=== PATIENT | male | born 1950 | race Caucasian/White ===

== ENCOUNTER 2022-11-18 06:04 | Day surgery (SDC) | payer MEDICARE, BC, SELFPAY ==
[2022-11-18] VITALS (15 sets, daily range): BP systolic 97–149; BP diastolic 48–69; PULSE 42–51; RESP 14–20; TEMP 36.1–36.5; O2SAT 90–100; BMI 33.7
[2022-11-18] MEDS: OXYCODONE (CR) 10 MG TAB.ER.12H PO (06:54)
[2022-11-18] MEDS: ACETAMINOPHEN 500 MG TABLET 1000 MG PO (06:54)
[2022-11-18] MEDS: SODIUM CHLORIDE 0.9 % (FLUSH) 10 ML SYRINGE IVF (07:18)
[2022-11-18] MEDS: LACTATED RINGERS 1000 ML 1,000 ML 100 ML IV (07:18)
[2022-11-18] MEDS: fentaNYL 100 MCG/2 ML inj IVP (07:27)
[2022-11-18] MEDS: MIDAZOLAM HCL 1 MG/ML inj IVP (07:27)
--- NOTE | 2022-11-18 07:38 | SUR.PREOP ---
TIME?OUT:?0725 PT/RN/MDA?VERIFICATION?OF?SURGICAL?SITE,?PROCEDURE,?AND?CONSENT OBTAINED?PRIOR?TO?INVASIVE?PROCEDURE.
[2022-11-18] MEDS: CEFAZOLIN 2 GM INJ IVP (07:49)
--- NOTE | 2022-11-18 08:36 | W.PM.NB ---
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 Images saved: Yes Medications given in 5ml increments after negative aspiration: Ropivicaine %: 0.5 mL: 20 Needle gauge: 22 Decadron (mg): 10 Precedex (mcg): 25 Patient tolerated procedure well: Yes Block Charges Block Charge (with Pro Fee): Brachial Plexus Use of Ultrasound Machine for Block: Yes- US Guidance/pain block
--- NOTE | 2022-11-18 08:37 | W.ANESCHARGE ---
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
--- NOTE | 2022-11-18 09:22 | P.ORPRC_ITS ---
Procedure Note Date of procedure: 11/18/22 Procedure: PREOPERATIVE DIAGNOSIS: Right shoulder rotator cuff tear, AC joint arthrosis, biceps tendinopathy POSTOPERATIVE DIAGNOSIS: Right shoulder rotator cuff tear, AC joint arthrosis, biceps tendinopathy NAME OF OPERATION: Right shoulder arthroscopic subacromial decompression, distal clavicle excision, mini open rotator cuff repair, biceps tenodesis SURGEON: Srinivas Titus MD MACHINIST INSTRUCTOR: Sandra Lemons PA-C ANESTHESIA: Supraclavicular block plus general endotracheal ESTIMATED BLOOD LOSS: 5 mL COMPLICATIONS: None SPECIMENS: None DRAINS: None PREOPERATIVE ANTIBIOTICS: Ancef 2 grams INDICATIONS: The patient is a 72-year-old with a history of right shoulder pain secondary to the above diagnoses. Despite appropriate non operative management, they continue to have symptoms. Operative intervention was recommended. The risks, benefits and expected outcomes were discussed in detail. These included but were not limited to: Infection, bleeding, injury to blood vessel or nerve, venous thromboembolism. All questions were answered to their satisfaction. PROCEDURE: A supraclavicular block was placed by Anesthesia. General anesthesia was administered. The patient was placed in the high beach chair position. The right shoulder was prepped and draped in the usual sterile fashion. The glenohumeral joint was infiltrated with 20 mL of normal saline with epinephrine. The posterior portal was established, the arthroscope was introd uced. The anterior portal was established, Diagnostic arthroscopy was performed with findings as follows: The biceps has a marked amount of intra- articular tendinopathy. The anterior, posterior and superior labrum shows age- appropriate degenerative fraying. Articular surfaces on the humeral head and glenoid are normal. There are no loose bodies. There is a high-grade partial- thickness tear of the supraspinatus and longitudinal splitting of the subscap. The biceps was tenotomized with arthroscopic scissors. The stump was debrided with the shaver. Likewise, the labrum was debrided with the shaver. The arthroscope was placed in the subacromial space, the lateral portal was established. The Arthrex [place] was used to dissect the acromion free. The CA ligament was recessed off the anterior acromion, the AC joint was exposed. The acromioplasty was performed with the bur in the posterior portal. The bur was then placed in the lateral portal and the lateral and anterior aspect of the acromion were resected. The undersurface of the distal clavicle was resected through the lateral portal. Finally, the bur was placed in the anterior portal and the remainder of the distal clavicle was resected for a total of 10 mm. An accessory anterolateral portal was placed. The subacromial/subdeltoid bursa was aggressively debrided. The bursal surface of the rotator cuff appears intact. Arthroscopic instruments were removed. The accessory anterolateral portal was extended proximally and distally, subcutaneous dissection was taken with electrocautery to the deltoid. The deltoid was divided in line with its fibers. The static retractor was placed. The subacromial/subdeltoid bursa was debrided with the Can scissors. The bicipital groove was opened with the scalpel, delivering the biceps into the wound. We release the remaining few fibers of the supraspinatus and subscap insertion, resulting in a full-thickness tear of each. The greater and lesser tuberosities were debrided to punctate bleeding bone using the arthroscopic bur. A suture tape was placed in the subscap in an inverted mattress fashion. A fiber link was placed in the biceps. Two Arthrex [employer] SwiveLock anchors were placed just off the articular surface. Both limbs of the FiberWire and fiber tape were passed using the scorpion. A fiber link was placed in the leading edge of the rotator cuff x2. We tied the 2 central FiberWire sutures over the rotator cuff. A SwiveLock anchor was placed high in the groove, securing the biceps and subscap. We then proceeded with a lateral row of SwiveLock anchors x 2 crossing the FiberTape and incorporating the FiberWire and fiber link into each lateral row anchor. Sutures in the eyelet in each anchor were passed through the leading edge of the rotator cuff x3. This provides an anatomic, watertight repair of the rotator cuff. There is no tension on the repair with the shoulder at 0? abduction. The wound was irrigated with normal saline off the pump. The deltoid was repaired with an 0 Vicryl in an interrupted [id number] fashion. Subcutaneous tissues were closed with a 3-0 Vicryl. Skin was closed with a 3-0 Monocryl in a subcuticular fashion. A dry dressing, polar care and sling were applied. Sponge and needle counts were correct x2. The patient tolerated the procedure well. There were no apparent complications. They were carefully transferred to the hospital bed and taken to the postanesthesia care unit in satisfactory condition. PLAN: The patient will be discharged to home. No active range of motion of the shoulder will be allowed for 6 weeks postoperatively. They can work on active range of motion of the elbow, wrist and fingers. They will follow up in the office next week for a wound check and an AP and transscapular Y-view of the shoulder prior to being seen.
--- NOTE | 2022-11-18 09:43 | W.ANESCHARGE ---
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
[2022-11-18] MEDS: LACTATED RINGERS 1000 ML 1,000 ML 35 ML IV (10:05)
--- NOTE | 2022-11-18 10:25 | SUR.PHASEI ---
patient met dicharge criteria per anesthesia
== END 2022-11-18 12:24 | disposition home or self-care (01) ==
PROVIDERS: PCP Internal Medicine; Visit Provider Orthopaedic Surgery
PROC: (CPT 23412; principal; 2022-11-18 07:30)
DX: M75.101 Unspecified rotator cuff tear or rupture of right shoulder, not specified as traumatic (principal); M19.011 Primary osteoarthritis, right shoulder; M75.21 Bicipital tendinitis, right shoulder; G89.18 Other acute postprocedural pain
CPT/HCPCS: 29826; 29828; 29824; 23412; 01630; 64415; 76942; 99100; A9270; C1713; J0330; J0690; J1100; J2250; J2370; J2405; J2704; J2795; J3010; J7120; L3670

== ENCOUNTER 2023-12-20 13:25 | Outpatient (CLI) | payer MEDICARE, BC, SELFPAY ==
--- OUTSIDE RECORDS SUMMARY | 2023-12-20 13:27 | XMS_ITS | Clinical Summary ---
Author Organization [employer] [facility] Address [place], [place] [address] Care Team Providers [facility] Name Role Phone Latrice Velasquez MD Primary Care Provider [phone] Kati Inman MD Unavailable [phone] Skip Terrell MD Unavailable Allergies No known active allergies Medications Medication Sig Dispensed Refills Start Date End Date Status ketoconazole 2% topical (NIZORAL) cream Apply topically to affected area(s) once daily. To feet Active ketoconazole 2% shampoo (NIZORAL) 2 % shampoo ADD 1 CAP OF SHAMPOO TO WARM WATER AND SOAK FOR 10 MINUTES 1-3 TIMES A WEEK 10/26/2022 Active metoprolol succinate (TOPROL XL) 25 mg Sustained-Release tabletIndications:Aty pical atrial flutter (HC) Take 0.5 Tablets (12.5 mg) by mouth two times daily. 45 Tablet 2 12/22/2022 Active CPAPIndications:JAYRO (obstructive sleep apnea) CPAP machine for home use at pressure 10cmw, nasal mask x1/3month with nasal cushion x2/mo 1 Each 11 01/05/2023 Active propafenone (RYTHMOL) 300 mg tabletIndications:Aty pical atrial flutter (HC) TAKE ONE TABLET BY MOUTH EVERY 8 HOURS. 270 Tablet 3 05/09/2023 Active apixaban (ELIQUIS) 5 mg tabletIndications:Par oxysmal atrial fibrillation (HC),Atypical atrial flutter (HC) Take 1 Tablet (5 mg) by mouth two times daily. 180 Tablet 2 08/10/2023 Active torsemide (DEMADEX) 20 mg tabletIndications:Zeus ous insufficiency Take 1 Tablet (20 mg) by mouth once daily. until leg swelling improves and then as needed for swelling/weight gain. 30 Tablet 1 08/22/2023 Active amLODIPine (NORVASC) 5 mg tabletIndications:Hyp ertension Take 1 Tablet (5 mg) by mouth once daily. 90 Tablet 3 09/27/2023 Active atorvastatin (LIPITOR) 20 mg tabletIndications:Mix ed hyperlipidemia Take 1 Tablet (20 mg) by mouth at bedtime. 90 Tablet 3 09/27/2023 Active tamsulosin (FLOMAX) 0.4 mg capsuleIndications:Ne phrolithiasis Take 1 Capsule (0.4 mg) by mouth once daily after a meal. 14 Capsule 10/23/2023 Active Active Problems Problem Noted Date Diagnosed Date Urge incontinence of urine 10/31/2023 Erectile dysfunction 10/31/2023 Ureteral stone with hydronephrosis 10/30/2023 JAYRO 09/04/2018 AHI-28 09/12/2018 Overview: Using CPAP Atrial flutter 07/03/2018 Tubular adenoma 02/28/2018 Mixed hyperlipidemia 04/27/2017 Tinea pedis of both feet 03/28/2017 S/P ablation of atrial fibrillation 05/04/2012 Overview: 2011 1st ablation Hypertension 06/27/2006 Atrial fibrillation, paroxysmal 09/26/2000 Overview: - First episode in 2000 - S/P cardioversions 3X in 2004 -Treated with Propafenone briefly -11/2011 S/P complex radiofrequency ablation with Dr. Victor -February 2013 atrial fibrillation found during preoperative exam, good rate control on Toprol -05/07/2013 DCCV - restarted rhythmol 225 three times daily - 07/03/2018 DCCV after a cruise -05/10/2020 DCCV at [facility] - 07/2022 ablation procedure Hyperlipidemia Umbilical hernia Resolved Problems Problem Noted Date Diagnosed Date Resolved Date Anticoagulation monitoring, INR range 2-3 07/05/2018 06/05/2019 Abscess of left thigh 04/29/20172017 Edema of left lower leg due to peripheral venous insufficiency 04/27/2017 12/05/2017 Sepsis due to undetermined organism 03/28/2017 04/05/2017 Cellulitis of left leg/thigh 03/28/2017 12/05/2017 Encounter for long-term (cur rent) use of other medications 09/10/2006 05/09/2012 Encounters Date Type Department Care Team Description 12/19/2023 2:00 PM CDT Orders Only [facility] [address] [facility] [place] [address] 1 scan: (1-Ord) ECHO TTE COMPLETE WO CONTRAST ([id number]) 12/19/2023 Travel 12/14/2023 3:30 PM CDT Office Visit [facility] [address] [place] [address] Alexandra Peterson MD Consult (consult) 12/14/2023 Travel 11/04/2023 1:05 PM CDT - 11/04/2023 11:59 PM CDT Hospital Encounter [facility] [address] [place] [address] Aldo Bermudez MD Ureteral stone with hydronephrosis 11/04/2023 Travel 11/02/2023 Telephone [facility] [address] [place] [address] Mason Elizabeth MD Medication Management 11/01/2023 Travel 10/31/2023 12:00 PM CDT Office Visit [facility] [address] [place] [address] Aldo Bermudez MD Consult (Nephrolithiasis ) 10/31/2023 Telephone [facility] [address] [place] [address] Mason Elizabeth MD Appointment Request 10/31/2023 Travel 10/24/2023 Telephone [facility] [address] [place] [address] Ramila Inman MD Appointment Request 10/23/2023 10:50 AM CDT - 10/23/2023 11:59 PM CDT Hospital Encounter [facility] [address] [place] [address] Tsering Walker, ARMIDA Gross hematuria 10/23/2023 9:20 AM CDT Office Visit [facility] [address] [place] [address] Tsering Walker, PRINTER FLOOR COVERING ASSISTANT Cystitis (Possible UTI; frequent urination emptying full bladder q 10-15 minutes, dark brown urine since yesterday morning. ) 10/23/2023 Travel 10/18/[address] [address] Alice Jacobson NP Follow Up (vein study) 10/11/2023 8:00 AM CDT Orders Only [facility] [address] [place] [address] 2 scans: (2-Ord) US VENOUS INSUFFICIENCY LOWER EXTREMITY BILATERAL ([id number]) 10/11/2023 Travel 09/29/[address] [address] Alice Jacobson NP Follow Up 09/27/2023 11:35 AM CDT Ancillary Procedure [address] [address] 09/27/2023 10:30 AM CDT Office Visit [address] [address] Alice Jacobson NP Medicare ANNUAL (subsequent) Visit 09/27/2023 Travel from Last 3 Months Immunizations Name Administration Dates Next Due AMB Influenza, IIV3 (Age >=3 years)(Flu Clinic Only) 03/10/2013 Amb Influenza, Inact (High-d ose) (Flu Clinic Only) 02/14/2014 COVID-19 vaccine (Pfizer-Bio NTech 30mcg/0.3mL) 12YO+ BIVALENT PF, MDV 04/14/2022 COVID-19 vaccine (Pfizer-Bio NTech 30mcg/0.3mL) 12YO+ JILLIAN-SUCROSE PF, MDV 11/02/2021 COVID-19 vaccine (Pfizer-Bio NTech 30mcg/0.3mL) PF, MDV 02/25/2021,08/17/2020,07/26/2020 HepA-HepB (Twinrix) 08/17/2006 Hepatitis A (Adult) 08/17/2006,02/10/2006 Hepatitis B (Adult) 08/17/2006,04/21/2006,2005 Influenza A (H1N1), Inactivated 06/02/2009 Influenza A (H1N1), Inactiva toni (Age >=3 Years) 06/02/2009 Influenza RIV4 (Age 18+ Year s) PRESERV FREE 03/03/2019 Influenza Virus, Unspecified 02/18/2020, 03/30/2017,03/10/2013,2011,02/19/2011,03/09/2010,04/09/2009,1 ,03/24/2006,04/14/2005 Influenza, High-dose Inactivated 018,03/23/2016,03/18/2015,2013 Influenza, High-dose Quadriv alent Inactivated 02/24/2023,02/25/2021 Influenza, IIV3 (Age 6-35 mos) 02/19/2011 Influenza, IIV3 (Age >=3 years) 03/10/20 13,03/07/2012,02/19/2011,2009,04/09/2009,03/08/2008,03/24/2006,1 06/14/2004 Influenza, Inactivated AIIV4 (Age 65+ Years) Preserv Free 02/27/2022 Influenza, Inactivated IIV3 (Age 65+ Years) Preserv Free 03/03/2019,03/30/2017 Pneumococcal Poly,23-Valent (Pneumovax) 05/31/2017,05/12/2012,02/20/2006 Pneumococcal conj 13-Valent (Prevnar 13) 11/14/2014 Td, Preservative Free (age > = 7 Years) 06/10/2005 Tdap 11/14/2014 Typhoid (injectable) 07/07/2017,11/14/2014 Zoster (Shingrix-RZV, recombinant) 05/03/2019, Zoster (Zostavax-ZVL, live) 01/01/2010 Family History Medical History Relation Name Comments Other Brother 2 throat cancer Cancer Father brain Cancer Mother lung Other Mother postop complica tions after spinal fusion Relation Name Status Comments Brother 1 Brother 2 Daughter Alive Father (Age 66) Mother Son Alive Social History Tobacco Use Types Packs/Day Years Used Date Smoking Tobacco: Never Smokeless Tobacco: Never Tobacco Cessation:Counseling Given: Yes Comments:never Alcohol Use Standard Drinks/Week Comments No 0 (1 standard drink = 0.6 oz pur e alcohol) PHQ-2 Answer Date Recorded PHQ-2 TOTAL SCORE 0 09/27/2023 Social Connections Answer Date Recorded Frequency of Communication with Friends and Fami ly Not on file 11/04/2022 Financial Resource Strain Answer Date R ecorded Difficulty of Paying Living Expenses 3 11/02/2021 Difficulty of Paying Living Expenses Not on file 11/02/2021 Food Insecurity Answer Date Recorded Worried About Running Out of Food in the Last Ye ar 1 11/02/2021 Transportation Needs Answer Date Record ed Lack of Transportation (Medical) 1 11/02/2021 Housing Stability Answer Date Recorded Unable to Pay for Housing in the Last Year 1 11/02/2021 Sex and Gender Information Value Date Recorded Sex Assigned at Male 01/12/2020 4:47 PM CDT Gender Identity Male 01/12/2020 4:47 PM CDT Sexual Orientation Straight 01/12/2020 4: 47 PM CDT Obstetrics History Last Filed Vital Signs Vital Sign Reading Time Taken Comments Blood Pressure 138/78 12/14/2023 11:05 AM CDT Pulse 55 12/14/2023 11:05 AM CDT Temperature 36.4 ??C (97.6 ??F) 10/23/2023 10:26 AM C DT Respiratory Rate 18 10/23/2023 11:31 AM CDT Oxygen Saturation 96% 12/14/2023 11:05 AM CDT Inhaled Oxygen Concentration - - Weight 98.7 kg (217 lb 8 oz) 12/14/2023 11:05 AM CDT Height 168 cm (5' 6.14) 09/27/2023 10:34 AM CDT Body Mass Index 34.95 09/27/2023 10:34 AM CDT Plan of Treatment Upcoming Encounters Date Type Department Care Team (Late st Contact Info) Description 01/17/2024 2:30 PM CDT Office Visit [facility] [address] [place] [address] Skip Terrell MD [address] [place] [address] 03/06/2024 10:30 AM CDT Office Visit [facility] [address] [place] [address] Jerel Plascencia MD [address] [place] [address] Health Maintenance Due Date Last Done Comments COVID-19 vaccine series ( season) 2023 04/14/2022, 11/02/2021, 02/25/2021, Additional history exists Influenza for age 65+ 01/22/2024 02/24/2023 , 02/27/2022, 02/25/2021, Additional history exists BMI (ht and wt on same day) for age 18+ 09/26/2024 09/27/2023, 01/05/2023, 12/16/2022, Additional history exists Medicare Wellness for age 65+ 09/27/2024, 08/03/2022, 07/29/2021, Additional history exists Depression screening for age 12+ 09/28/2024 09/29/2023, 09/27/2023, 08/05/2022, Additional history exists Tetanus booster 11/14/2024 11/14/2014, 06/10/2005 Colonoscopy through age 75 05/09/202805/09, 04/04/2018, 03/27/2013, Additional history exists Lipids for age 45-75 09/26/2028 09/27/2023, 08/03/2022, 07/29/2021, Additional history exists Tdap Completed 11/14/2014 Pneumococcal series for age 65+ Completed 05/31/2017, 11/14/2014, 05/12/2012, Additional history exists Hepatitis C screening for ag e 18-79 Completed 06/03/2017 Zoster (shingles) series for age 50+ Completed 05/03/2019, 03/03/2019, 01/01/2010 Procedures Procedure Name Priority Date/Time Associated Diagnosis Comments ECHO TTE COMPLETE WO CONTRAST Routine 12/19/2023 2:50 PM CDT Atrial fibrillation, unspecified type (HC) Paroxysmal atrial fibrillation (HC) Mitral valve insufficiency, unspecified etiology CT PELVIS WO STAT 11/04/2023 1:28 PM CDT Ureteral stone with hydronephrosis RED CELL MORPHOLOGY STAT 10/23/2023 11:13 AM CDT Gross hematuria PLATELET ESTIMATE STAT 10/23/2023 11:13 AM CDT Gross hematuria MANUAL DIFFERENTIAL STAT 10/23/2023 11:13 AM CDT Gross hematuria CBC WITH AUTO DIFFERENTIAL STAT 10/23/2023 11:13 AM CDT Gross hematuria BASIC METABOLIC PANEL STAT 10/23/2023 11:13 AM CDT Gross hematuria CBC WITH AUTO DIFFERENTIAL STAT 10/23/2023 11:13 AM CDT Gross hematuria CT ABDOMEN PELVIS WO STAT 10/23/2023 11:09 AM CDT Gross hematuria URINE CULTURE Add On 10/23/2023 9:43 AM CDT Gross hematuria URINALYSIS MICROSCOPIC STAT 10/23/2023 9:43 AM CDT Gross hematuria UA W/ SEDIMENT EXAM REFLEXED PER CRITERIA STAT 10/23/2023 9:43 AM CDT Gross hematuria US VENOUS INSUFFICIENCY LOWER EXTREMITY BILATERAL Routine 10/11/2023 8:31 AM CDT Pedal edema Paroxysmal atrial fibrillation (HC) SOB (shortness of breath) XR CHEST 2 VIEWS PA AND LATERAL Routine 09/27/2023 11:48 AM CDT Shortness of breath CBC WITH AUTO DIFFERENTIAL Routine 09/27/2023 11:35 AM CDT SOB (shortness of breath) PSA TOTAL SCREEN Routine 09/27/2023 11:35 AM CDT Prostate cancer screening ALT (SGPT) Routine 09/27/2023 11:35 AM CDT Pure hypercholesterolemia LIPID PANEL W REFLEX MEASURED LDL Routine 09/27/2023 11:35 AM CDT Pure hypercholesterolemia PRO-BNP Routine 09/27/2023 11:35 AM CDT Shortness of breath BASIC METABOLIC PANEL Routine 09/27/2023 11:35 AM CDT Pedal edema CBC WITH AUTO DIFFERENTIAL Routine 09/27/2023 11:35 AM CDT SOB (shortness of breath) COLONOSCOPY 05/09/2023 1:56 PM MANAGER DIVERSITY ANTI HCV Routine 06/03/2017 4:30 PM MANAGER DIVERSITY Need for hepatitis C screening test from Last 3 Months or Most Recently Relevant to Health Maintenance Results * ECHO TTE COMPLETE WO CONTRAST (12/19/2023 2:50 PM CDT) AORTIC VALVE MEAN PG 5 mmHg EJECTION FRACTION 71 % PEAK TR VELOCITY 2.8 m/s LVEDD 5.4 cm Anatomical Region Laterality Modality Ultrasound 12/19/2023 2:10 PM CDT Narrative 12/19/2023 4:15 PM CDT ECHOCARDIOGRAM BABAK COTTRELL ? Accession#: ?? [id number] : ?1950 73 years Study Date: ?? 12/19/2023 2:10:16 PM Gender: M ?BP: ? 142/70 mmHg Height: 168.00 cm ?BSA: ?2.08 m? ? ? Weight: 99.00 kg ? Tech: ? MBW ? Referring MD: DANITA BOB Site: ? [facility] Reading Location: [place] Patient Location: Outpatient. Procedure: 2D, Color Doppler and Spectral Doppler. Indication for study: Paroxysmal A fib/ Mitral Valve Insufficiency Cardiac Rhythm: Sinus bradycardia and with premature atrial contractions.Study quality: Fair. Final Impressions: 1. Normal left ventricular size, moderately increased wall thickness, normal global systolic function, calculated EF of 71 %. 2. Right ventricular cavity size is normal, global systolic RV function is normal. 3. Severely enlarged left atrium. 4. The ascending aorta is dilated with a maximal diameter of 4.0 cm. 5. The aortic sinus is dilated with a maximal diameter of 4.2 cm. 6. The aortic valve is trileaflet and sclerotic, no stenosis and mild regurgitation. 7. The mitral valve is sclerotic, trace mitral regurgitation. 8. Unable to assess RA pressure. At least mildly elevated RV systolic pressure (32 mmHg + the RA pressure). 9. No pericardial effusion. Comparison Compared to prior exam of 08/27/2021, there has been no significant change. Chamber Sizes and Function Normal left ventricular size, moderately increased wall thickness, normal global systolic function, calculated EF of 71 %. Left atrial size is severely enlarged. Right ventricular cavity size is normal, global systolic RV function is normal. The right atrium is mildly enlarged. Right atrial area is 17 cm? ? ?. The pulmonary artery is not well visualized. The sinus of Valsalva is dilated. The ascending aorta is dilated. Valves, RV Pressures and Diastolic Function The aortic valve is trileaflet and sclerotic, no stenosis and mild regurgitation. The mitral valve is sclerotic, trace mitral regurgitation. Indeterminate pattern of LV diastolic filling. The tricuspid valve is normal in structure. Tricuspid regurgitation is mild regurgitation. The tricuspid regurgitant velocity is 2.8 m/s, the estimated right ventricular systolic pressure is 32 mmHg plus right atrial pressure. The pulmonic valve is normal. No pulmonary regurgitation. Masses, Effusion, Shunts There is no pericardial effusion. The inferior vena cava is not well visualized, respiratory size variation not well visualized. No left to right shunting was detected by limited color flow Doppler interrogation of the interatrial septum. MEASUREMENTS AND CALCULATIONS 2-D Measurements and LV Function: LVID (d) 5.4 cm Planimetered EF 71 % LVID (s) 3.4 cm LV FS% (2D) ? 38 % IVS (d) ??1.4 cm LVOT diameter ?? 2.3 cm LVPW (d) 1.2 cm HR ?55 bpm Ao Sinus 4.2 cm LA Vol index ?47 ml/m2 Asc Ao ?? 4.0 cm RA area ? 17 cm? ? ? LA ? 5.5 cm RV Max 4C (d) ?? 4.0 cm Diastology: Mitral ?Tissue Doppler E Peak 0.9 m/s ??e', Septum ? 0.07 m/s A Peak 0.6 m/s ??e', Lateral ?0.09 m/s E/A ?1.6 ?E/e' Average ?? 11.44 DT ? 189 msec Aortic Valve: Vmax ? 1.5 m/s ??HA (V) ?? 3.21 cm? ? ? VTI ?0.35 m ?? HA (I) ?? 2.78 cm? ? ? LVOT V max ? 1.2 m/s ??Max PG ?9 mmHg LVOT VTI ? 0.24 m ?? Mean PG ?? 5 mmHg SV ? 96 ml ?Dim Index 0.68 SV index ? 46 ml/m? ? ? CO ?5.3 l/min AV Ejection Time 0.34 sec CI ?2.5 l/min/m? ? ? AV Flow Rate ? 283 ml/s Mitral Valve: MVA ? 4.0 cm? ? ? MV P 1/2 ??55 msec MV Mean G 1 mmHg MV VTI ?0.36 m Tricuspid Valve and estimated PA pressures: TR Vmax 2.8 m/s TAPSE 2.2 cm TR maxG 32 mmHg . This study was interpreted by an [facility] accredited facility. CC: Latrice Velasquez. ??Final ?? Procedure Note Blas Bello MD - 12/19/2023 ECHOCARDIOGRAM BABAK COTTRELL : 1950 73 years Study Date: 12/19/2023 2:10:16 PM Gender: M BP: 142/70 mmHg Height: 168.00 cm BSA: 2.08 m? ? ? Weight: 99.00 kg Tech: MAKENNA Referring MD: DANITA BOB Site: [facility] Reading Location: [place] Patient Location: Outpatient. Procedure: 2D, Color Doppler and Spectral Doppler. Indication for study: Paroxysmal A fib/ Mitral Valve Insufficiency Cardiac Rhythm: Sinus bradycardia and with premature atrialcontractions.Study quality: Fair. Final Impressions: 1. Normal left ventricular size, moderately increased wall thickness,normal global systolic function, calculated EF of 71 %. 2. Right ventricular cavity size is normal, global systolic RV functionis normal. 3. Severely enlarged left atrium. 4. The ascending aorta is dilated with a maximal diameter of 4.0 cm. 5. The aortic sinus is dilated with a maximal diameter of 4.2 cm. 6. The aortic valve is trileaflet and sclerotic, no stenosis and mildregurgitation. 7. The mitral valve is sclerotic, trace mitral regurgitation. 8. Unable to assess RA pressure. At least mildly elevated RV systolicpressure (32 mmHg + the RA pressure). 9. No pericardial effusion. Comparison Compared to prior exam of 08/27/2021, there has been no significantchange. Chamber Sizes and Function Normal left ventricular size, moderately increased wall thickness, normalglobal systolic function, calculated EF of 71 %. Left atrial size isseverely enlarged. Right ventricular cavity size is normal, globalsystolic RV function is normal. The right atrium is mildly enlarged. Rightatrial area is 17 cm? ? ?. The pulmonary artery is not well visualized. Thesinus of Valsalva is dilated. The ascending aorta is dilated. Valves, RV Pressures and Diastolic Function The aortic valve is trileaflet and sclerotic, no stenosis and mildregurgitation. The mitral valve is sclerotic, trace mitral regurgitation.Indeterminate pattern of LV diastolic filling. The tricuspid valve isnormal in structure. Tricuspid regurgitation is mild regurgitation. Thetricuspid regurgitant velocity is 2.8 m/s, the estimated right ventricularsystolic pressure is 32 mmHg plus right atrial pressure. The pulmonicvalve is normal. No pulmonary regurgitation. Masses, Effusion, Shunts There is no pericardial effusion. The inferior vena cava is not wellvisualized, respiratory size variation not well visualized. No left toright shunting was detected by limited color flow Doppler interrogation ofthe interatrial septum. MEASUREMENTS AND CALCULATIONS 2-D Measurements and LV Function: LVID (d) 5.4 cm Planimetered EF 71 % LVID (s) 3.4 cm LV FS% (2D) 38 % IVS (d) 1.4 cm LVOT diameter 2.3 cm LVPW (d) 1.2 cm HR 55 bpm Ao Sinus 4.2 cm LA Vol index 47 ml/m2 Asc Ao 4.0 cm RA area 17 cm? ? ? LA 5.5 cm RV Max 4C (d) 4.0 cm Diastology: Mitral Tissue Doppler E Peak 0.9 m/s e', Septum 0.07 m/s A Peak 0.6 m/s e', Lateral 0.09 m/s E/A 1.6 E/e' Average 11.44 DT 189 msec Aortic Valve: Vmax 1.5 m/s HA (V) 3.21 cm? ? ? VTI 0.35 m HA (I) 2.78 cm? ? ? LVOT V max 1.2 m/s Max PG 9 mmHg LVOT VTI 0.24 m Mean PG 5 mmHg SV 96 ml Dim Index 0.68 SV index 46 ml/m? ? ? CO 5.3 l/min AV Ejection Time 0.34 sec CI 2.5 l/min/m? ? ? AV Flow Rate 283 ml/s Mitral Valve: MVA 4.0 cm? ? ? MV P 1/2 55 msec MV Mean G 1 mmHg MV VTI 0.36 m Tricuspid Valve and estimated PA pressures: TR Vmax 2.8 m/s TAPSE 2.2 cm TR maxG 32 mmHg . This study was interpreted by an [facility] accredited facility. CC: Latriec Velasquez. Final Danita Bob PRINTER FLOOR COVERING ASSISTANT ECHO ORD * CT PELVIS WO (11/04/2023 1:28 PM CDT) Anatomical Region Laterality Modality Pelvis, Abdomen, PROSTATE, BLADDER Computed Tomography 11/04/2023 1:52 PM CDT Impressions 11/04/2023 1:52 PM CDT 1. Previously seen distal left ureteral calculus has passed in the interim. No ureteral calculi or hydronephrosis. 2. Stable mildly trabeculated bladder wall, with small left diverticulum. No bladder calculi identified. Small urachal remnant noted. Please note that all CT scans at this facility use dose modulation, iterative reconstruction, and/or weight-based dosing when appropriate to reduce radiation dose to as low as reasonably achievable. Dictated by Bina Bauer MD @ 11/04/2023 1:52:38 PM (Electronically Signed) Narrative 11/04/2023 1:52 PM CDT For Patients: ??As a result of the Century Cures Act, medical imaging exams and procedure reports are released immediately into your electronic medical record. ??You may view this report before your referring provider. ??If you have questions, please contact your health care provider. INDICATION: Ureteral stone. TECHNIQUE: CT pelvis acquired without contrast. COMPARISON: CT abdomen/pelvis dated 10/23/2023. FINDINGS: Bowel and mesentery: Visualized bowel is nondilated. Scattered colonic diverticulosis, without evidence of acute diverticulitis. Bladder: Stable mildly trabeculated bladder wall, with small left diverticulum. Small urachal remnant noted. Previously seen distal left ureteral calculus has passed in the interim, no ureteral calculi or hydronephrosis. Reproductive organs: No prostatomegaly. Pelvic lymph nodes: No lymphadenopathy. Vessels: Scattered atherosclerotic calcifications. Abdominal wall: No acute abdominal wall abnormality. Bones: Multilevel degenerative changes of the visualized spine. No suspicious/aggressive focal osseous lesion. Procedure Note Bina Bauer MD - 11/04/2023 For Patients: As a result of the Cures Act, medical imagingexams and procedure reports are released immediately into your electronicmedical record. You may view this report before your referring provider.If you have questions, please contact your health care provider. INDICATION: Ureteral stone. TECHNIQUE: CT pelvis acquired without contrast. COMPARISON: CT abdomen/pelvis dated 10/23/2023. FINDINGS: Bowel and mesentery: Visualized bowel is nondilated. Scattered colonicdiverticulosis, without evidence of acute diverticulitis. Bladder: Stable mildly trabeculated bladder wall, with small leftdiverticulum. Small urachal remnant noted. Previously seen distal leftureteral calculus has passed in the interim, no ureteral calculi orhydronephrosis. Reproductive organs: No prostatomegaly. Pelvic lymph nodes: No lymphadenopathy. Vessels: Scattered atherosclerotic calcifications. Abdominal wall: No acute abdominal wall abnormality. Bones: Multilevel degenerative changes of the visualized spine. Nosuspicious/aggressive focal osseous lesion. IMPRESSION: 1. Previously seen distal left ureteral calculus has passed in theinterim. No ureteral calculi or hydronephrosis. 2. Stable mildly trabeculated bladder wall, with small left diverticulum.No bladder calculi identified. Small urachal remnant noted. Please note that all CT scans at this facility use dose modulation,iterative reconstruction, and/or weight-based dosing when appropriate toreduce radiation dose to as low as reasonably achievable. Dictated by Bina Bauer MD @ 11/04/2023 1:52:38 PM (Electronically Signed) Aldo Bermudez MD CT * (ABNORMAL) CBC WITH AUTO DIFFERENTIAL (10/23/2023 11:13 AM CDT) Only the most recent of2 resultswithin the time period is included. WHITE BLOOD COUNT 11.3(H) 4.5 - 11.0 thou/cu mm 10/23/2023 11:39 AM T [facility] RED BLOOD COUNT 4.22(L) 4.30 - 5.90 mil/cu mm 10/23/2023 11:39 AM [facility] HEMOGLOBIN 13.1(L) 13.5 - 17.5 g/dL 10/23/2023 11:39 AM [facility] HEMATOCRIT 39.3 37.0 - 53.0 % 10/23/2023 11:39 AM [facility] LABORATORY MCV 93 80 - 100 fL 10/23/2023 11:39 AM [facility] MCH 31.0 26.0 - 34.0 pg 10/23/2023 11:39 AM [facility] MCHC 33.3 32.0 - 36.0 g/dL 10/23/2023 11:39 AM [facility] RDW 12.6 11.5 - 15.5 % 10/23/2023 11:39 AM [facility] PLATELET COUNT 245 140 - 440 thou/cu mm 10/23/2023 11:39 AM [facility] MPV 10.5 6.5 - 11.0 fL 10/23/2023 11:39 AM [facility] Blood BLOOD SPECIMEN / Unknown Venipuncture / Unknown 10/23/2023 11:13 AM CDT 10/23/2023 11:14 AM CDT Tsering Walker NP HEMATOLOGY [facility] [address] [place] [address] * RED CELL MORPHOLOGY (10/23/2023 11:13 AM CDT) [facility] RBC COMMENT RBC morphology appears normal RBC morphology appears normal, RBC morphology within normal limits for newborns. 10/23/2023 11:39 AM CDT [facility] Blood BLOOD SPECIMEN / Unknown Venipuncture / Unknown 10/23/2023 11:13 AM CDT 10/23/2023 11:14 AM CDT Tsering Walker NP HEMATOLOGY [facility] [address] [place] [address] * PLATELET ESTIMATE (10/23/2023 11:13 AM CDT) [facility] PLATELET ESTIMATE Adequate Adequate, No estimate 10/23/2023 11:39 AM CDT [facility] Blood BLOOD SPECIMEN / Unknown Venipuncture / Unknown 10/23/2023 11:13 AM CDT 10/23/2023 11:14 AM CDT Tsering Walker NP HEMATOLOGY [facility] [address] [place] [address] * (ABNORMAL) MANUAL DIFFERENTIAL (10/23/2023 11:13 AM CDT) [facility] % NEUTROPHILS 61.0 % 10/23/2023 11:39 AM CDT [facility] % LYMPHOCYTES 29.0 % 10/23/2023 11:39 AM CDT [facility] % MONOCYTES 8.0 % 10/23/2023 11:39 AM CDT [facility] % EOSINOPHILS 2.0 % 10/23/2023 11:39 AM CDT [facility] % BASOPHILS 0.0 % 10/23/2023 11:39 AM CDT [facility] NEUTROPHILS ABSOLUTE 6.9 1.7 - 7.0 thou/cu mm 10/23/2023 11:39 AM [facility] LYMPHOCYTES ABSOLUTE 3.3(H) 0.9 - 2.9 thou/cu mm 10/23/2023 11:39 AM [facility] MONOCYTES ABSOLUTE 0.9(H) <0.9 thou/cu mm 10/23/2023 11:39 AM [facility] EOSINOPHILS ABSOLUTE 0.2 <0.5 thou/cu mm 10/23/2023 11:39 AM [facility] BASOPHILS ABSOLUTE 0.0 <0.3 thou/cu mm 10/23/2023 11:39 AM [facility] Blood BLOOD SPECIMEN / Unknown Venipuncture / Unknown 10/23/2023 11:13 AM CDT 10/23/2023 11:14 AM CDT Tsering Walker NP HEMATOLOGY Performing Organization Address City/[facility] Co de Phone Number [facility] [address] [place] [address] * (ABNORMAL) BASIC METABOLIC PANEL (10/23/2023 11:13 AM CDT) Only the most recent of2 resultswithin the time period is included. SODIUM 145 136 - 145 mmol/L 10/23/2023 11:37 AM [facility] POTASSIUM 3.8 3.5 - 5.1 mmol/L 10/23/2023 11:37 AM [facility] CHLORIDE 104 98 - 107 mmol/L 10/23/2023 11:37 AM [facility] CO2,TOTAL 31(H) 22 - 29 mmol/L 10/23/2023 11:37 AM [facility] ANION GAP 10 5 - 18 10/23/2023 11:37 AM [facility] GLUCOSE 97 70 - 99 mg/dL 10/23/2023 11:37 AM [facility] CALCIUM 9.6 8.8 - 10.2 mg/dL 10/23/2023 11:37 AM [facility] BUN 27(H) 8 - 23 mg/dL 10/23/2023 11:37 AM CDT [facility] CREATININE 1.34(H) 0.70 - 1.20 mg/dL 10/23/2023 11:37 AM CDT [facility] BUN/CREAT RATIO 20 10 - 20 11:37 AM CDT [facility] eGFR 55(L) >90 mL/min/1.7 3m2 10/23/2023 11:37 AM CDT [facility] Comment:As of 2021, eG FR is calculated by the CKD-EPI creatinine equation without race adjustment. ??eGFR can be influenced by muscle mass, exercise, and diet. ??The reported eGFR is an estimation only and is only applicable if the renal function is stable. Blood BLOOD SPECIMEN / Unknown Venipuncture / Unknown 10/23/2023 11:13 AM CDT 10/23/2023 11:14 AM CDT Tsering Walker NP CHEMISTRY [facility] [address] [place] [address] * CT ABDOMEN PELVIS WO (10/23/2023 11:09 AM CDT) Anatomical Region Laterality Modality Abdomen, Pelvis, AORTA, LIVER, SPLEEN Computed Tomography 10/23/2023 12:1 7 PM CDT Impressions 10/23/2023 12:17 PM CDT 1. Mild left-sided hydronephrosis to the level of the distal left ureter where there is a 5 mm obstructing urinary calculus. 2. Dense coronary arterial calcifications. Advise correlation with ASCVD evaluation. Please note that all CT scans at this facility use dose modulation, iterative reconstruction, and/or weight-based dosing when appropriate to reduce radiation dose to as low as reasonably achievable. Dictated by Abelino Acosta MD @ 10/23/2023 12:17:56 PM (Electronically Signed) Narrative 10/23/2023 12:17 PM CDT For Patients: ??As a result of the 21st Century Cures Act, medical imaging exams and procedure reports are released immediately into your electronic medical record. ??You may view this report before your referring provider. ??If you have questions, please contact your health care provider. INDICATION: Flank pain. Evaluate for kidney stone. TECHNIQUE: Multiplanar CT examination of the abdomen and pelvis was performed without the use of intravenous contrast, renal stone protocol. COMPARISON: None. FINDINGS: Limited evaluation of the soft tissue organs without the use of intravenous contrast. Lower chest: No focal consolidation. Normal heart size. No pleural effusions or pneumothorax. Linear bandlike opacifications of the lung bases likely subsegmental atelectasis and/or scarring. Dense coronary arterial calcifications Liver: Unremarkable. Gallbladder: Cholecystectomy. Biliary: Unremarkable. Pancreas: Within normal limits. Spleen: Unremarkable. Adrenal glands: Left adrenal nodule measuring 11 mm, indeterminate. Right adrenal gland within limits. Renal/ureters/bladder: Kidneys are normal in size. There is mild left-sided hydroureteronephrosis to the level of the distal ureter where there is a 5 mm obstructing urinary calculus. There is no right-sided obstructive uropathy. Several left renal hypodensities measuring up to 5.3 cm poorly evaluated on this noncontrast examination but likely represent simple renal cysts. The right ureter is unremarkable. Underdistended bladder limits evaluation. Otherwise, the bladder appears mildly diffusely thick walled. Pelvis: ??Unremarkable. Gastrointestinal: No bowel wall thickening or bowel obstruction. Normal appendix. Trace colonic diverticulosis without pericolonic fat stranding to suggest acute diverticulitis. Mild colonic stool burden. Vasculature: No aortic aneurysm. Severe atherosclerotic calcifications of the abdominal aorta. Lymph nodes: Prominent sunita hepatis lymph nodes do not meet size criteria for lymphadenopathy, likely reactive. Peritoneum: No free fluid or pneumoperitoneum. No drainable fluid collections. Abdominal wall/soft tissues: Fat containing right inguinal hernia. Bones: No acute osseous abnormalities. Mild degenerative changes of the thoracolumbar spine. Procedure Note Abelino Acosta DO - 10/23/2023 For Patients: As a result of the Cures Act, medical imagingexams and procedure reports are released immediately into your electronicmedical record. You may view this report before your referring provider.If you have questions, please contact your health care provider. INDICATION: Flank pain. Evaluate for kidney stone. TECHNIQUE: Multiplanar CT examination of the abdomen and pelvis was performed withoutthe use of intravenous contrast, renal stone protocol. COMPARISON: None. FINDINGS: Limited evaluation of the soft tissue organs without the use ofintravenous contrast. Lower chest: No focal consolidation. Normal heart size. No pleuraleffusions or pneumothorax. Linear bandlike opacifications of the lungbases likely subsegmental atelectasis and/or scarring. Dense coronaryarterial calcifications Liver: Unremarkable. Gallbladder: Cholecystectomy. Biliary: Unremarkable. Pancreas: Within normal limits. Spleen: Unremarkable. Adrenal glands: Left adrenal nodule measuring 11 mm, indeterminate. Rightadrenal gland within limits. Renal/ureters/bladder: Kidneys are normal in size. There is mildleft-sided hydroureteronephrosis to the level of the distal ureter wherethere is a 5 mm obstructing urinary calculus. There is no right-sidedobstructive uropathy. Several left renal hypodensities measuring up to 5.3cm poorly evaluated on this noncontrast examination but likely representsimple renal cysts. The right ureter is unremarkable. Underdistendedbladder limits evaluation. Otherwise, the bladder appears mildly diffuselythick walled. Pelvis: Unremarkable. Gastrointestinal: No bowel wall thickening or bowel obstruction. Normalappendix. Trace colonic diverticulosis without pericolonic fat strandingto suggest acute diverticulitis. Mild colonic stool burden. Vasculature: No aortic aneurysm. Severe atherosclerotic calcifications ofthe abdominal aorta. Lymph nodes: Prominent sunita hepatis lymph nodes do not meet size criteriafor lymphadenopathy, likely reactive. Peritoneum: No free fluid or pneumoperitoneum. No drainable fluidcollections. Abdominal wall/soft tissues: Fat containing right inguinal hernia. Bones: No acute osseous abnormalities. Mild degenerative changes of thethoracolumbar spine. IMPRESSION: 1. Mild left-sided hydronephrosis to the level of the distal left ureterwhere there is a 5 mm obstructing urinary calculus. 2. Dense coronary arterial calcifications. Advise correlation with ASCVDevaluation. Please note that all CT scans at this facility use dose modulation,iterative reconstruction, and/or weight-based dosing when appropriate toreduce radiation dose to as low as reasonably achievable. Dictated by Abelino Acosta MD @ 10/23/2023 12:17:56 PM (Electronically Signed) Hope M Aaron PRINTER FLOOR COVERING ASSISTANT CT * (ABNORMAL) URINALYSIS MICROSCOPIC (10/23/2023 9:43 AM CDT) RBC >100(A) 0-2, None Seen /HPF 10/23/2023 9:57 AM CDT [facility] WBC 0-2 0-2, 3-5, None Seen /HPF 10/23/2023 9:57 AM CDT [facility] BACTERIA Few None Seen, Rare, Few Bacteria/H PF 10/23/2023 9:57 AM CDT [facility] EPITHELIAL CELLS Few None Seen, Few Epi/HPF 10/23/2023 9:57 AM CDT [facility] Urine URINE SPECIMEN / Unknown Non-Blood / Unknown 10/23/2023 9:43 AM CDT 10/23/2023 9:43 AM CDT Rich Perez URINE [facility] [address] [place] [id number] * (ABNORMAL) URINE CULTURE (10/23/2023 9:43 AM CDT) CULTURE RESULT(A) 10/26/2023 7:10 AM CDT [facility] CULTURE 10,000-50,000 CFU/mL Enterococcus faecalis 10/26/2023 7:10 AM CDT [facility] Urine URINE SPECIMEN / Unknown Non-Blood / Unknown 10/23/2023 9:43 AM CDT 10/23/2023 9:43 AM CDT Narrative Organism Antibiotic Method Susceptibility Enterococcus faecalis AMPICILLIN <=2: S Enterococcus faecalis NITROFURANTOIN <=16: S Tsering Walker NP MICROBIOLOGY [facility] [address] [place] [address], * (ABNORMAL) UA W/ SEDIMENT EXAM REFLEXED PER CRITERIA (10/23/2023 9:43 AM CDT) COLOR Brown(A) Yellow Color 10/23/2023 9:56 AM [facility] CLARITY Cloudy(A) Clear Clarity 10/23/2023 9:56 AM [facility] SPECIFIC GRAVITY,URINE 1.020 1.010, 1.015, 1.020, 1.025 10/23/2023 9:56 AM [facility] PH,URINE 7.0 6.0, 7.0, 8.0, 5.5, 6.5, 7.5, 8.5 10/23/2023 9:56 AM [facility] UROBILINOGEN,QU ALITATIVE Normal Normal EU/dl 10/23/2023 9:56 AM [facility] PROTEIN, URINE 30(A) Negative mg/dL 10/23/2023 9:56 AM [facility] GLUCOSE, URINE Negative Negative mg/dL 10/23/2023 9:56 AM [facility] KETONES,URINE Negative Negative mg/dL 10/23/2023 9:56 AM [facility] BILIRUBIN,URINE Abnormal(A) Negative 10/23/19 9:56 AM [facility] Comment:A variety of metabol ites and/or medications may result in a positive bilirubin result. Clinical correlation is recommended. OCCULT BLOOD,URINE Large(A) Negative 10/23/2023 9:56 AM [facility] NITRITE Negative Negative 10/23/2023 9:56 AM [facility] LEUKOCYTE ESTERASE Negative Negative 10/23/2023 9:56 AM [facility] Urine URINE SPECIMEN / Unknown Non-Blood / Unknown 10/23/2023 9:43 AM CDT 10/23/2023 9:43 AM CDT Rich Perez URINE [facility] [address] [place] [address] * VENOUS INSUFFICIENCY LOWER EXTREMITY BILATERAL (10/11/2023 8:31 AM CDT) Anatomical Region Laterality Modality LEGS Ultrasound 10/11/2023 7:49 AM CDT Narrative 10/12/2023 1:48 PM CDT VASCULAR ULTRASOUND REPORT BABAK COTTRELL Accession#: ?? [id number] : ?1950 ??Study Date: ?? 10/11/2023 7:49:27 AM Age: ?73 years ?? Tech: ? BVB Gender: M ?Referring MD: ALICE JACOBSON Site: [facility] Study performed: ?Duplex US venous insufficiency, (bilateral). Indication for study: LE pain/edema TECHNIQUE: Lower/upper extremity veins were examined with duplex ultrasound, color-flow and spectral Doppler per exam protocol. Vein compressibility by transducer pressure was used to evaluate presence/absence of DVT/SVT. Venous flow and competence was evaluated by flow augmentation maneuvers per exam protocol. Insufficiency studies were performed with the patient in upright position, with vein diameters measured in mm, and reflux. IMPRESSION: 1. No evidence of deep vein thrombosis in the right and left lower extremity. 2. No evidence of deep venous insufficiency in the right and left lower extremity. 3. Superficial venous insufficiency was noted in the left greater saphenous vein at upper calf, mid calf and lower calf. 4. Incompetent varicose and/or warehouse receiving clerk veins as listed below. COMPARISON: No prior study available for comparison. FINDINGS: Right popliteal fossa cyst measuring 2.4 x 1.0 x 3.0cm. Moderate edema throughout the left ankle. Right Lower Extremity: No deep venous insufficiency. No evidence of DVT. Varicose vein at knee off the GSV, 3.2 mm diameter, 4.7 sec reflux. Left Lower Extremity: No deep venous insufficiency. No evidence of DVT. Varicose vein at knee off the GSV, 2.7 mm diameter, 0.0 sec reflux. MEASUREMENTS: + +--------+----+--------+------+ RIGHT ? Compress SVT Diameter Reflux ?(mm) ?? (secs) + +--------+----+--------+------+ SFJ ? yes ? None ??7.7 ?? 0.0 ?? + +--------+----+--------+------+ GSV THIGH PRX yes ? None ??4.5 ?? 0.0 ?? + +--------+----+--------+------+ GSV THIGH MID yes ? None ??3.7 ?? 0.0 ?? + +--------+----+--------+------+ GSV THIGH DST yes ? None ??4.0 ?? 0.0 ?? + +--------+----+--------+------+ GSV KNEE ? yes ? None ??3.4 ?? 0.0 ?? + +--------+----+--------+------+ GSV CALF UPPER yes ? None ??3.3 ?? 0.0 ?? + +--------+----+--------+------+ GSV CALF MID ?? yes ? None ??2.4 ?? 0.0 ?? + +--------+----+--------+------+ GSV CALF LOW ?? yes ? None ??2.9 ?? 0.0 ?? + +--------+----+--------+------+ SSV KNEE/SPJ ?? yes ? None ??1.6 ?? 0.0 ?? + +--------+----+--------+------+ SSV CALF PRX ?? yes ? None ??1.5 ?? 0.0 ?? + +--------+----+--------+------+ SSV CALF MID ?? yes ? None ??2.5 ?? 0.0 ?? + +--------+----+--------+------+ + +--------+----+ +------+ LEFT ? Compress SVT Diameter (mm) Reflux ? (secs) + +--------+----+ +------+ SFJ ? yes ? None ? 2.7 ? 0.0 ?? + +--------+----+ +------+ GSV THIGH PRX yes ? None ? 3.3 ? 0.0 ?? + +--------+----+ +------+ GSV THIGH MID yes ? None ? 2.8 ? 0.0 ?? + +--------+----+ +------+ GSV THIGH DST yes ? None ? 4.0 ? 0.0 ?? + +--------+----+ +------+ GSV KNEE ? yes ? None ? 2.5 ? 0.0 ?? + +--------+----+ +------+ GSV CALF UPPER yes ? None ? 2.5 ? 0.5 ?? + +--------+----+ +------+ GSV CALF MID ?? yes ? None ? 2.2 ? 0.5 ?? + +--------+----+ +------+ GSV CALF LOW ?? yes ? None ? 3.0 ? 0.7 ?? + +--------+----+ +------+ SSV KNEE/SPJ ?? yes ? None ? 4.3 ? 0.0 ?? + +--------+----+ +------+ SSV CALF PRX ?? yes ? None ? 2.0 ? 0.0 ?? + +--------+----+ +------+ SSV CALF MID ?? yes ? None ? 2.2 ? 0.0 ?? + +--------+----+ +------+ can't evaluate Varicose Veins + + + + RIGHT Location ?? Diameter (mm) Reflux (secs) + + + + knee off the GSV ? 3.2 ? 4.7 ? + + + + + + + + LEFT Location ?? Diameter (mm) Reflux (secs) + + + + knee off the GSV ? 2.7 ? 0.0 ? + + + + DEEP SYSTEM +----+--------+--------+ ? RIGHT ?? LEFT ? Compress Compress +----+--------+--------+ CFV yes ? yes ? +----+--------+--------+ FV ?? yes ? yes ? +----+--------+--------+ POPV yes ? yes ? +----+--------+--------+ can't evaluate Sang Merino MD. Electronically signed on 10/12/2023 1:48:15 PM This study was performed and interpreted by a service accredited by the Intersocietal Accreditation Commission (IAC/Vascular), [email or web address]/vascular Report generated by [employer]. ??Final ?? Procedure Note Sang Merino MD - 10/12/2023 VASCULAR ULTRASOUND REPORT BABAK COTTRELL : 1950 Study Date: 10/11/2023 7:49:27 AM Age: 73 years Tech: BVB Gender: M Referring MD: ALICE JACOBSON Site: [facility] Study performed: Duplex US venous insufficiency, (bilateral). Indication for study: LE pain/edema TECHNIQUE: Lower/upper extremity veins were examined with duplex ultrasound,color-flow and spectral Doppler per exam protocol. Vein compressibility bytransducer pressure was used to evaluate presence/absence of DVT/SVT.Venous flow and competence was evaluated by flow augmentation maneuversper exam protocol. Insufficiency studies were performed with the patientin upright position, with vein diameters measured in mm, and reflux. IMPRESSION: 1. No evidence of deep vein thrombosis in the right and left lowerextremity. 2. No evidence of deep venous insufficiency in the right and left lowerextremity. 3. Superficial venous insufficiency was noted in the left greatersaphenous vein at upper calf, mid calf and lower calf. 4. Incompetent varicose and/or warehouse receiving clerk veins as listed below. COMPARISON: No prior study available for comparison. FINDINGS: Right popliteal fossa cyst measuring 2.4 x 1.0 x 3.0cm. Moderate edemathroughout the left ankle. Right Lower Extremity: No deep venous insufficiency. No evidence of DVT. Varicose vein at kneeoff the GSV, 3.2 mm diameter, 4.7 sec reflux. Left Lower Extremity: No deep venous insufficiency. No evidence of DVT. Varicose vein at kneeoff the GSV, 2.7 mm diameter, 0.0 sec reflux. MEASUREMENTS: + +--------+----+--------+------+ RIGHT Compress SVT Diameter Reflux (mm) (secs) + +--------+----+--------+------+ SFJ yes None 7.7 0.0 + +--------+----+--------+------+ GSV THIGH PRX yes None 4.5 0.0 + +--------+----+--------+------+ GSV THIGH MID yes None 3.7 0.0 + +--------+----+--------+------+ GSV THIGH DST yes None 4.0 0.0 + +--------+----+--------+------+ GSV KNEE yes None 3.4 0.0 + +--------+----+--------+------+ GSV CALF UPPER yes None 3.3 0.0 + +--------+----+--------+------+ GSV CALF MID yes None 2.4 0.0 + +--------+----+--------+------+ GSV CALF LOW yes None 2.9 0.0 + +--------+----+--------+------+ SSV KNEE/SPJ yes None 1.6 0.0 + +--------+----+--------+------+ SSV CALF PRX yes None 1.5 0.0 + +--------+----+--------+------+ SSV CALF MID yes None 2.5 0.0 + +--------+----+--------+------+ + +--------+----+ +------+ LEFT Compress SVT Diameter (mm) Reflux (secs) + +--------+----+ +------+ SFJ yes None 2.7 0.0 + +--------+----+ +------+ GSV THIGH PRX yes None 3.3 0.0 + +--------+----+ +------+ GSV THIGH MID yes None 2.8 0.0 + +--------+----+ +------+ GSV THIGH DST yes None 4.0 0.0 + +--------+----+ +------+ GSV KNEE yes None 2.5 0.0 + +--------+----+ +------+ GSV CALF UPPER yes None 2.5 0.5 + +--------+----+ +------+ GSV CALF MID yes None 2.2 0.5 + +--------+----+ +------+ GSV CALF LOW yes None 3.0 0.7 + +--------+----+ +------+ SSV KNEE/SPJ yes None 4.3 0.0 + +--------+----+ +------+ SSV CALF PRX yes None 2.0 0.0 + +--------+----+ +------+ SSV CALF MID yes None 2.2 0.0 + +--------+----+ +------+ can't evaluate Varicose Veins + + + + RIGHT Location Diameter (mm) Reflux (secs) + + + + knee off the GSV 3.2 4.7 + + + + + + + + LEFT Location Diameter (mm) Reflux (secs) + + + + knee off the GSV 2.7 0.0 + + + + DEEP SYSTEM +----+--------+--------+ RIGHT LEFT Compress Compress +----+--------+--------+ CFV yes yes +----+--------+--------+ FV yes yes +----+--------+--------+ POPV yes yes +----+--------+--------+ can't evaluate Sang Merino MD. Electronically signed on 10/12/2023 1:48:15 PM This study was performed and interpreted by a service accredited by theIntersocietal Accreditation Commission (IAC/Vascular),www.[email or web address]/vascular Report generated by [employer]. Final Alice Jacobson PRINTER FLOOR COVERING ASSISTANT US * XR CHEST 2 VIEWS PA AND LATERAL (09/27/2023 11:48 AM CDT) Anatomical Region Laterality Modality CHEST, THORAX, Lung, HEART Compu toni Radiography 09/28/2023 7:08 AM CDT Impressions 09/28/2023 7:08 AM CDT Mild cardiac enlargement. Otherwise negative chest. No cardiac decompensation or acute pulmonary pathology. Dictated by Hamzah Nicolas MD @ 09/28/2023 7:08:29 AM (Electronically Signed) Narrative 09/28/2023 7:08 AM CDT For Patients: ??As a result of the Cures Act, medical imaging exams and procedure reports are released immediately into your electronic medical record. ??You may view this report before your referring provider. ??If you have questions, please contact your health care provider. INDICATION: Shortness of breath. TECHNIQUE: Chest 2 views. COMPARISON: 08/22/2018 FINDINGS: Cardiovascular and mediastinum: Mild cardiac enlargement. Vasculature are normal in caliber and appearance. Mediastinum is within normal limits. Lungs and pleural spaces: Lungs are clear. No sign of infiltrate or mass. No sign of pleural effusion. No pneumothorax. Bones and soft tissues: No significant findings. Procedure Note Sergio Nicolas MD - 09/28/2023 For Patients: As a result of the Cures Act, medical imagingexams and procedure reports are released immediately into your electronicmedical record. You may view this report before your referring provider.If you have questions, please contact your health care provider. INDICATION: Shortness of breath. TECHNIQUE: Chest 2 views. COMPARISON: 08/22/2018 FINDINGS: Cardiovascular and mediastinum: Mild cardiac enlargement. Vasculature arenormal in caliber and appearance. Mediastinum is within normal limits. Lungs and pleural spaces: Lungs are clear. No sign of infiltrate or mass.No sign of pleural effusion. No pneumothorax. Bones and soft tissues: No significant findings. IMPRESSION: Mild cardiac enlargement. Otherwise negative chest. No cardiacdecompensation or acute pulmonary pathology. Dictated by Hamzah Nicolas MD @ 09/28/2023 7:08:29 AM (Electronically Signed) Alice Jacobson NP GENERAL IMAGING * LIPID PANEL W REFLEX MEASURED LDL (09/27/2023 11:35 AM CDT) CHOLESTEROL,TOTAL 199 100 - 199 mg/dL 09/27/2023 12:17 PM T [facility] Comment: Cholesterol, Total Reference Ranges Desirable <200 mg/dL Borderline 200-239 mg/dL High >=240 mg/dL TRIGLYCERIDES 92 <150 mg/dL 09/27/2023 12:17 PM [facility] HDL CHOLESTEROL 58 >40 mg/dL 12:17 PM [facility] NON-HDL CHOLESTEROL 141 <145 mg/dl 09/27/2023 12:17 PM [facility] CHOL/HDL RATIO 3.43 <4.50 09/27/2023 12:17 PM [facility] LDL CHOLESTEROL 123 <=130 mg/dL 09/27/2023 12:17 PM [facility] VLDL CHOLESTEROL 18 <=30 mg/dL 09/27/2023 12:17 PM [facility] PROVIDER ORDERED STATUS RANDOM 09/27/2023 12:17 PM [facility] Blood BLOOD SPECIMEN / Unknown Venipuncture / Unknown 09/27/2023 11:35 AM CDT 09/27/2023 11:35 AM CDT Alcie Jacobson NP CHEMISTRY [facility] [address] [place] [address] * ALT (SGPT) (09/27/2023 11:35 AM CDT) ALT (SGPT) 20 10 - 50 IU/L 09/27/2023 12:17 PM T [facility] Blood BLOOD SPECIMEN / Unknown Venipuncture / Unknown 09/27/2023 11:35 AM CDT 09/27/2023 11:35 AM CDT Alice Jacobson NP CHEMISTRY Performing Organization Address [facility]/ZIP Co de Phone Number [facility] [address] [place] [address] * PRO-BNP (09/27/2023 11:35 AM CDT) PRO-BNP 207 <450 pg/mL 09/27/2023 12:20 PM CDT [facility] Blood BLOOD SPECIMEN / Unknown Venipuncture / Unknown 09/27/2023 11:35 AM CDT 09/27/2023 11:35 AM CDT Narrative [facility] - 09/27/2023 12:20 PM CDT The following cut-points have been suggested for the use of proBNP for the diagnostic evaluation of heart failure (HF) in patient with acute dyspnea. Patients with eGFR >= 60 Diagnosis (rule in CHF) ? <50 Years Old ?450 pg/mL 50 - 75 Years Old ?900 pg/mL >75 Years Old ? 1800 pg/mL Exclusion (rule out CHF) Age Independent ?300 pg/mL A cutoff of 1200 pg/mL for patients with an eGFR <60 yields a diagnostic sensitivity of 89% and specificity of 72% for acute congestive heart failure. ? Alice Jacobson NP SEND OUTS Performing Organization Address [facility]/ZIP Co de Phone Number [facility] [address] [place] [address] * PSA TOTAL SCREEN - Dx Auto-associated (09/27/2023 11:35 AM CDT) PSA TOTAL (SCREEN) 0.28 <4.00 ng/mL 09/28/2023 1:08 AM CDT [facility] Blood BLOOD SPECIMEN / Unknown Venipuncture / Unknown 09/27/2023 11:35 AM CDT 09/27/2023 11:35 AM CDT Narrative [facility] - 09/28/2023 1:08 AM CDT The test method changed on 11/16/2022. If this test has been used for serial monitoring, rebaselining is recommended. Rebaselining consists of 2 measurements, collected 3-6 weeks apart. The [employer] total PSA assay is an electrochemiluminescence immunoassay ECLIA performed on the Kathleen Luis Miguel e immunoassay analyzers. Values obtained with different assay methods may be different and cannot be used interchangeably. Alice Jacobson NP LABORATORY [facility] [address] [place] [address], * COLONOSCOPY (05/09/2023 1:56 PM MANAGER [employer]ERS[employer]) 05/09/2023 1:56 PM MANAGER [employer] Narrative Transcriptions Mariela Tinoco DO - 06/03/2023 12:57 PM CST Patient Name: Babak Cottrell Procedure Date: 05/09/2023 Gender: Male Date of : 1950 Admit Type: Ambulatory Procedure: Colonoscopy Proceduralist: Mariela Tinoco MD Referring MD: Latrice Velasquez MD Indications/Pre-Op Diagnosis: High risk colon cancer surveillance:Personal history of colonic polyps Medications: Propofol per Anesthesia, MonitoredAnesthesia Care Procedure Description: The patient had risks, benefits and alternatives explained to andgave informed consent. The patient had a stable cardiopulmonary status and judged an adequate candidate for conscious sedation. The endoscope [id number] was passed through the anus and advanced to the cecum, identified by appendiceal orifice andileocecal valve. The colonoscopy was performed without difficulty. The patient tolerated the procedure well. The quality of the bowel preparationwas good. The ileocecal valve, appendiceal orifice, and rectum were photographed. Complications: No immediate complications. Estimated blood loss: Minimal. Estimated Blood Loss & Specimen: Estimated blood loss was minimal. Specimen collected - Yes and sent to Laboratory Findings: The perianal and digital rectal examinations were normal. Pertinent negatives include normal sphincter tone. A few medium-mouthed and small-mouthed diverticula were found in the sigmoid colon. Non-bleeding internal hemorrhoids were found during retroflexion and during endoscopy. The hemorrhoids were mild and Grade I (internal hemorrhoids that do not prolapse). A 4 mm polyp was found in the ascending colon. The polyp was sessile. The polyp was removed with a hot biopsy forceps. Resection andretrieval were complete. Verification of patient identification for thespecimen was done. Estimated blood loss was minimal. The exam was otherwise without abnormality on direct and retroflexion views. Impressions/Post-Op Diagnosis: - Diverticulosis in the sigmoid colon. - Non-bleeding internal hemorrhoids. - One 4 mm polyp in the ascending colon, removed with a hot biopsy forceps. Resected and retrieved. - The examination was otherwise normal on direct and retroflexionviews. Recommendation: - Patient has a contact number available for emergencies. The signsand symptoms of potential delayed complications were discussed with the patient. Return to normal activities tomorrow. Written discharge instructions were provided to the patient. - Discharge patient to home. - Resume previous diet. - Continue present medications. - Await pathology results. - Repeat colonoscopy in 5-10 years for surveillance and forsurveillance based on pathology results. Mariela Tinoco MD 06/03/2023 12:57:44 PM This report has been signed electronically. Note Initiated On: 05/09/2023 1:56 PM Mariela Tinoco DO PROCEDURE ORD * ANTI HCV (06/03/2017 4:30 PM MANAGER [employer]ITY) HEPATITIS C ANTIBODY Non-Reacti ve Non-Reacti ve 06/04/2017 1:22 PM MANAGER DIVERSITY [facility] Blood BLOOD SPECIMEN / Unknown Venipuncture / Unknown 06/03/2017 4:30 PM MANAGER [employer]ERSITY 06/03/2017 4:34 PM MANAGER DIVERSITY Narrative [facility] - 06/04/2017 1:22 PM MANAGER DIVERSITY Antibodies to HCV not detected; does not exclude the possibility of exposure to HCV. Latrice Velasquez MD SEND OUTS [facility] 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 Healthcare Directive 05/07/2013 7:53 AM * Full Code (Latest Code Status on File) Date Activated Date Inactivated Comments 08/22/2023 12:35 PM 08/22/2023 4:25 PM Question Answer Comments Code Status Discussion: Reviewed Preferences * Full Code Date Activated Date Inactivated Comments 05/24/2023 12:53 PM 05/24/2023 8:50 PM Question Answer Comments Code Status Discussion: Other * Full Code Date Activated Date Inactivated Comments 05/09/2023 11:30 AM 05/09/2023 6:19 PM Question Answer Comments Code Status Discussion: Discussed * Full Code Date Activated Date Inactivated Comments 10/21/2022 1:37 PM 10/21/2022 5:04 PM Question Answer Comments Code Status Discussion: Other * Full Code Date Activated Date Inactivated Comments 08/13/2022 4:18 PM 08/14/2022 1:30 PM Question Answer Comments Code Status Discussion: Reviewed Preferences Care Teams [employer] Relationship Specialty Start Date End Date Latrice Velasquez MD [address] [place] [address] [place] [address] PCP - General Internal Medicine 08/13/14 Kati Inman MD [facility] Dermatology [address] [facility] [place] [address] Dermatology 06/14/18 Skip Terrell MD [address] [facility] [address] [place] [address] Cardiology - Electrophysiology 06/05/19
--- NOTE | 2023-12-20 13:45 | MR_ITS ---
[address] [address] Phone:?[phone] Fax:?[phone] Referring Physician Information: Gaby Mcneal [address] [facility] [address] Phone:?[phone] Fax:?[phone] Patient:?Babak Armstrong D.O.B:?1950 Sex:?Male Phone:?[phone] [facility] MRN:?[id number] Exam Date:?12/20/2023 EXAM: MRI of the LEFT KNEE, without contrast CLINICAL: Left knee pain. Evaluate for internal derangement. COMPARISONS: X-rays dated 12/14/2023. TECHNICAL: Multiplanar multisequence MRI of the left knee was obtained. SEDATION: None. CONTRAST: None. FINDINGS: Ligaments: ACL: Intact and unremarkable. PCL: Intact and unremarkable. MCL: Intact and unremarkable. LCL: Intact and unremarkable. Posterolateral corner: Popliteus, biceps femoris, iliotibial band, and the popliteofibular ligament appear intact. Posteromedial corner: Semimembranosus, pes anserine tendons and posterior oblique ligament appear intact. Extensor mechanism: Patellar tendon: Intact, without tendinopathy. Quadriceps tendon: Intact, without tendinopathy. Retinacula: Medial and lateral retinacula are intact. Fat pads: Unremarkable infrapatellar Hoffa's, quadriceps and prefemoral fat pads. Patellofemoral joint: Patella: Full thickness chondral loss involving the medial patellar facet and patellar median ridge extending into the inferior lateral facet with minimal underlying subchondral cystic change. Trochlea:?There is full-thickness chondral loss involving the medial extending into the central trochlea with mild underlying subchondral reactive marrow edema/cystic change. Moderate chondral thinning involving the remaining lateral trochlea. Medial compartment: Medial meniscus: Ill-defined complex tearing involves the undersurface of the posterior horn on sagittal series 6 image 7-10. No significant meniscal displacement. Medial cartilage: No significant chondromalacia. Lateral compartment: Lateral meniscus: Ill-defined complex tearing involving the posterior root extending into the junction with the posterior horn as seen on sagittal series 6 images 17-20. Ill-defined complex tearing also involves the body segment on coronal series 8 images 18-19. Horizontal dominant tearing involves the superior articular surface and free edge of the anterior horn extending into the anterior root on sagittal series 6 image 20-24. No significant meniscal displacement. Lateral cartilage: Small segment of full-thickness chondral loss involving the posterior lateral tibial plateau underlying the posterior horn lateral meniscus on sagittal series 6 image 21. Grade 3 chondral thinning involves the peripheral posterior nonweightbearing lateral femoral condyle. Knee joint: Effusion: Physiologic left knee effusion. Intra-articular bodies:?No convincing bodies identified. Popliteal cyst: None. Bones: No suspicious bone marrow signal alteration or fracture line. There is scattered edema within the subcutaneous soft tissues of the knee, nonspecific. IMPRESSION: 1. Tearing of the medial and lateral menisci as above. 2. Full-thickness chondral loss involving the patellofemoral compartment. Small segment of full-thickness chondral loss also involves the posterior lateral tibial plateau underlying the posterior horn lateral meniscus with grade 3 chondral thinning involving the peripheral posterior nonweightbearing lateral femoral condyle. 3. No evidence of fracture or ligamentous injury. [facility] Electronically signed on 12/20/2023 3:36:00 PM by Josh Sprague D.O.
== END 2023-12-20 13:26 | disposition home or self-care (01) ==
LOC: MRI 13:26
PROVIDERS: PCP Internal Medicine; Visit Provider Physician Assistant
DX: M25.562 Pain in left knee (principal); S83.282A Other tear of lateral meniscus, current injury, left knee, initial encounter; S83.242A Other tear of medial meniscus, current injury, left knee, initial encounter; M25.362 Other instability, left knee
CPT/HCPCS: 73721